=== PATIENT | female | born 1995 | race African-American/Black ===

== ENCOUNTER 2017-05-04 00:27 | Emergency (ER) | payer MEDICAID ==
[~2017-05-04] VITALS: Ht 167.6 cm; Wt 68.0 kg
[~2017-05-04 00:27] MED LIST: CETI5TAB31
[2017-05-04 00:46] VITALS: BP_SYST 121
--- NOTE | 2017-05-04 02:33 | NUR ---
Patient to ER bed 7 to gown for evaluation. Side rails up. Report given to Noe OROZCO.
--- NOTE | 2017-05-04 02:45 | NUR ---
Patient arrived to ED a/o x 4 with c/o cold symptoms x 3 days. Patient reports generalized malaise and body aches 5/10. States she has a sore throat. Applied ointment to cold sore. Patient presents with swollen lip secondary to ointment application. Noticable swelling to lip. Denies fever. Denies N/V. Will continue to monitor.
--- NOTE | 2017-05-04 02:50 | NUR ---
ED MD Adams at bedside for medical evaluation.
[2017-05-04 03:30] VITALS: BP_SYST 121
--- NOTE | 2017-05-04 03:30 | NUR ---
Patient given written and verbal discharge instructions and verbalizes understanding. ER MD discussed with patient the results and treatment provided. Patient in stable condition. ID arm band removed. No Rx given. Patient educated on pain management and to follow up with PMD. Pain Scale 0/10 at this time. Opportunity for questions provided and answered.
== END 2017-05-04 03:30 | disposition home or self-care (01) ==
LOC: SED 00:27
DX: J02.9 Acute pharyngitis, unspecified (principal); Z88.2 Allergy status to sulfonamides
CPT/HCPCS: 99283